=== PATIENT | female | born 1990 | race Caucasian/White ===

== ENCOUNTER 2024-01-11 18:38 | Day surgery (SDC) | payer BC ==
[2024-01-11 19:45] VITALS: BMI 26.0
== END 2024-01-11 20:00 | disposition home or self-care (01) ==
LOC: CSHLD/OP 18:38
PROVIDERS: ATTEND Obstetrics & Gynecology
DX: O47.1 False labor at or after 37 completed weeks of gestation (principal); Z88.1 Allergy status to other antibiotic agents; Z3A.39 39 weeks gestation of pregnancy
CPT/HCPCS: 99282

== ENCOUNTER 2024-01-12 22:26 | Inpatient (IN) | payer BC ==
[2024-01-12 23:10] VITALS: BMI 26.0
[2024-01-12] MEDS ORDERED: Ondansetron PF 4 MG/2 ML Vial IVP PRN (23:10)
[2024-01-12] MEDS ORDERED: Promethazine HCl 25 MG/ML VIAL IM PRN (23:10)
[2024-01-12] MEDS ORDERED: hydrALAZINE 20 MG/ML VIAL SLOW IVP PRN (23:10)
[2024-01-12] MEDS ORDERED: Acetaminophen 500 MG TAB PO PRN (23:11)
[2024-01-12] MEDS ORDERED: Tranexamic Acid 1,000 MG/10 ML VIAL IVP PRN (23:11)
[2024-01-12] MEDS ORDERED: Methylergonovine 0.2 MG/ML VIAL IM PRN (23:11)
[2024-01-12] MEDS ORDERED: Diphenoxylate HCl/Atropine Tablet PO PRN (23:11)
[2024-01-12] MEDS ORDERED: Carboprost 250 MCG/ML AMP IM PRN (23:11)
[2024-01-12] MEDS ORDERED: Misoprostol 200 MCG TAB PR PRN (23:11)
[2024-01-12] MEDS ORDERED: Ibuprofen 800 MG TAB PO PRN (23:12)
[2024-01-12] MEDS ORDERED: Lidocaine 1% (PF) 30 ML VIAL SC PRN (23:12)
[2024-01-12] MEDS ORDERED: Oxytocin 30 units/NS 500 ML 500 ML IV SCH (23:15)
[2024-01-12] MEDS: fentaNYL/Ropivacaine Epidural 100 ML ONE (23:50)
[2024-01-13 00:02] LABS: Hemoglobin 13.8 g/dL (12.0-15.5); Mean Corpuscular HGB CONC 34.5 g/dL (32.0-36.0); Mean Corpuscular Hemoglobin 29.9 pg (27.0-33.0); Mean Corpuscular Volume 86.6 fl (81.6-98.3); Platelet Count 115 10x3/uL (150-450); RBC Distribution Width 15.1 % (11.5-14.5); Red Blood Cell (RBC) Count 4.62 10x6/uL (3.90-5.03)
[2024-01-13] MEDS ORDERED: Naloxone HCl 0.4 mg/ml Vial IVP PRN ×2 (00:03)
[2024-01-13] MEDS ORDERED: Ondansetron PF 4 MG/2 ML Vial IVP PRN ×2 (00:03→08:25)
[2024-01-13] MEDS ORDERED: Promethazine HCl 25 MG/ML VIAL IM PRN ×2 (00:03→08:25)
[2024-01-13] MEDS ORDERED: diphenhydrAMINE 50 MG/ML VIAL IVP PRN (00:03)
[2024-01-13] MEDS ORDERED: Lactated Ringer's 500 ML IV PRN (00:03)
[2024-01-13] MEDS ORDERED: Moisturizing Cream (Eucerin) 113 GM JAR TOP PRN (00:03)
[2024-01-13 00:07] LABS: HBsAg Index 0.15 S/CO (0-0.99); Hep B Surf Ag - L&D Non-Reactive S/CO (NonReactive)
[2024-01-13 00:08] LABS: Syphilis Antibody Nonreactive (Nonreactive); Syphilis Antibody Index 0.06 S/CO (<1.00 Non-Reactive)
[2024-01-13] MEDS ORDERED: Communication Order-Pharmacy FS SCH (00:15)
[2024-01-13] MEDS ORDERED: fentaNYL 2 mcg/Ropivacaine 0.2% Epidural 100 ML CADD EPIDURAL SCH (00:15)
[2024-01-13] MEDS: ePHEDrine Sulfate 50 MG/10 ML VIAL SLOW IVP PRN (02:45)
[2024-01-13 03:52] LABS: Analyzer IN Cardio CS NICU; RapidComm Collect By CBN
[2024-01-13 03:56] LABS: Analyzer IN Cardio CS NICU; RapidComm Collect By CBN; pH (Cord, venous) 7.235 (7.250-7.350)
[2024-01-13] MEDS ORDERED: Oxytocin 30 units/NS 500 ML 500 ML IV SCH (08:25)
[2024-01-13] MEDS ORDERED: hydrALAZINE 20 MG/ML VIAL SLOW IVP PRN (08:25)
[2024-01-13] MEDS ORDERED: Misoprostol 200 MCG TAB VAG PRN (08:25)
[2024-01-13] MEDS ORDERED: Milk Of Magnesia 30 ML UDCUP PO PRN (08:25)
[2024-01-13] MEDS ORDERED: Methylergonovine 0.2 MG/ML VIAL IM PRN (08:25)
[2024-01-13] MEDS ORDERED: Bisacodyl 10 MG SUPP PR PRN (08:25)
[2024-01-13] MEDS ORDERED: Boostrix 0.5 ML (Tdap) VIAL (>/=7 yrs of age) IM ONE (08:25)
[2024-01-13] MEDS ORDERED: Lanolin Ointment 7 GM TUBE TOP PRN (08:25)
[2024-01-13] MEDS: Ferrous Sulfate 325 MG TAB PO SCH ×2 (08:52→17:19)
[2024-01-13] MEDS: Docusate 100 MG CAP PO SCH (09:07)
[2024-01-13] MEDS: Prenatal Vitamin 1 TAB PO SCH (09:07)
[2024-01-13] MEDS: predniSONE 10 MG TAB PO SCH (10:46)
[2024-01-13] MEDS: Acetaminophen 325 MG TAB PO PRN (11:40)
[2024-01-13] MEDS: Ibuprofen 800 MG TAB PO SCH (14:28)
[2024-01-13] MEDS ORDERED: Bupivacaine/Epinephrine 0.25% 30 ML VIAL ONE (19:51)
[2024-01-13] MEDS ORDERED: ePHEDrine Sulfate 50 MG/10 ML VIAL ONE (19:51)
[2024-01-14 08:39] VITALS: BP 114/72; TEMP 98.6
[2024-01-14] MEDS: predniSONE 10 MG TAB PO SCH (09:24)
== END 2024-01-14 12:05 | disposition home or self-care (01) | DRG 807 ==
LOC: CSHLD/OP 22:26 → CSHLD 22:55 → CSHPP 01-13 05:45
PROVIDERS: ADMIT Obstetrics & Gynecology; ATTEND Obstetrics & Gynecology
PROC: 10D07Z6 Extraction of Products of Conception, Vacuum, Via Natural or Artificial Opening (ICD-10-PCS; principal; 2024-01-13)
PROC: 0KQM0ZZ Repair Perineum Muscle, Open Approach (ICD-10-PCS; 2024-01-13)
PROC: 10907ZC Drainage of Amniotic Fluid, Therapeutic from Products of Conception, Via Natural or Artificial Opening (ICD-10-PCS; 2024-01-13)
DX: O99.12 Other diseases of the blood and blood-forming organs and certain disorders involving the immune mechanism complicating childbirth (principal); Z37.0 Single live birth; D69.6 Thrombocytopenia, unspecified; Z3A.38 38 weeks gestation of pregnancy; Z79.52 Long term (current) use of systemic steroids; Z79.899 Other long term (current) drug therapy; O76 Abnormality in fetal heart rate and rhythm complicating labor and delivery; O70.1 Second degree perineal laceration during delivery
CPT/HCPCS: 36415; 82805; 85027; 86780; 86850; 86900; 86901; 87340; J7512